=== PATIENT | female | born 1965 | race Caucasian/White ===

== ENCOUNTER 2021-08-27 15:59 | Outpatient (CLI) | payer OTHER, SELFPAY ==
--- NOTE | ~2021-08-27 | MM_ITS ---
EXAMINATION: MM screening cl BI w geoffrey HISTORY: Screening mammogram TECHNIQUE: Craniocaudal and mediolateral oblique 3-D tomosynthesis images were obtained and synthetic 2-D images were generated. CAD analysis was submitted and interpreted. COMPARISON: No prior mammogram is available for comparison at this institution. BREAST PARENCHYMAL COMPOSITION: There are scattered areas of fibroglandular density. FINDINGS: There is no evidence of suspicious mass, calcification, or architectural distortion to sugg est malignancy in either breast. There has been no suspicious interval change. IMPRESSION: 1. No mammographic evidence of malignancy. 2. Recommend routine screening mammography in one year. BI-RADS Category 1: Negative Reviewed, dictated and finalized at location A. MANAGEMENT TEACHER
== END 2021-08-27 16:00 | disposition home or self-care (01) ==
LOC: ANHIMG 16:01
PROVIDERS: Visit Provider Obstetrics & Gynecology
DX: Z12.31 Encounter for screening mammogram for malignant neoplasm of breast (principal)
CPT/HCPCS: 77063; 77067

== ENCOUNTER 2021-10-03 14:00 | Outpatient (CLI) | payer OTHER, SELFPAY ==
[2021-10-03 15:41] LABS: Thyroid Stimulating Hormone Reflex 0.527 uIU/mL (0.465-4.68)
== END 2021-10-03 14:01 | disposition home or self-care (01) ==
LOC: ANHLAB 14:01
PROVIDERS: Visit Provider Obstetrics & Gynecology
DX: R53.83 Other fatigue (principal)
CPT/HCPCS: 36415; 82306; 84443

== ENCOUNTER 2022-03-25 08:48 | Outpatient (CLI) | payer BC, SELFPAY ==
--- NOTE | ~2022-03-25 | US_ITS ---
US axilla RT 03/25/2022 09:14 Indication: Palpable abnormality of the right axilla Procedure: High-resolution ultrasound of the right axilla Comparison: No prior studies for comparison. Findings: Normal heterogeneous echotexture in the right axilla without discrete mass. Impression: 1: Normal ultrasound of the right axilla. No discrete mass. BI-RADS CATEGORY 1 - NEGATIVE Reviewed, dictated and finalized at location A. Impression: 1: Normal ultrasound of the right axilla. No discrete mass. BI-RADS CATEGORY 1 - NEGATIVE
== END 2022-03-25 08:49 | disposition home or self-care (01) ==
PROVIDERS: PCP Internal Medicine; Visit Provider Internal Medicine
DX: R22.31 Localized swelling, mass and lump, right upper limb (principal)
CPT/HCPCS: 76882

== ENCOUNTER 2023-04-23 12:54 | Outpatient (CLI) | payer OTHER, SELFPAY ==
--- NOTE | ~2023-04-23 | MR_ITS ---
MRI of the brain Clinical History: Right facial numbness Technique: Axial and sagittal T1-weighted images were acquired. These were followed by axial T2-weigh celestino, diffusion weighted, gradient, and FLAIR images. Following intravenous administration of 13 cc Mu ltiHance gadolinium, T1-weighted fat-sat imaging was performed in the axial and coronal planes. Findings: No abnormal signal seen in the brain parenchyma. No acute infarct, intracranial hemorrhage, or mass lesion. Ventricles and subarachnoid spaces are unremarkable. Orbits are unremarkable. Retention cyst or polyp present in the right maxillary sinus. Remaining paranasal sinuses and mastoid air cells are clear. M ajor intracranial flow voids are intact. Sagittal midline structures are intact. No abnormal postcontrast enhancement identified. IMPRESSION: Unremarkable exam. Reviewed, dictated and finalized at location M. IMPRESSION: Unremarkable exam.
== END 2023-04-23 12:55 ==
PROVIDERS: PCP Internal Medicine; Visit Provider Internal Medicine
DX: R20.0 Anesthesia of skin (principal); M62.40 Contracture of muscle, unspecified site
CPT/HCPCS: 70553; A9577

== ENCOUNTER 2023-06-25 14:59 | Outpatient (CLI) | payer OTHER, SELFPAY ==
--- NOTE | ~2023-06-25 | MM_ITS ---
EXAMINATION: MM screening cl BI w geoffrey HISTORY: Screening mammogram TECHNIQUE: Craniocaudal and mediolateral oblique 3-D tomosynthesis images were obtained and synthetic 2-D images were generated. CAD analysis was submitted and interpreted. COMPARISON: 08/27/2021 bilateral screening mammogram BREAST PARENCHYMAL COMPOSITION: There are scattered areas of fibroglandular density. FINDINGS: There is no evidence of suspicious mass, calcification, or architectural distortion to sugg est malignancy in either breast. There has been no suspicious interval change. IMPRESSION: 1. No mammographic evidence of malignancy. 2. Recommend routine screening mammography in one year. BI-RADS Category 1: Negative Reviewed, dictated and finalized at location A.
== END 2023-06-25 15:00 | disposition home or self-care (01) ==
LOC: ANHIMG 15:01
PROVIDERS: PCP Internal Medicine; Visit Provider Internal Medicine
DX: Z12.31 Encounter for screening mammogram for malignant neoplasm of breast (principal)
CPT/HCPCS: 77063; 77067

== ENCOUNTER 2023-07-30 01:50 | Day surgery (SDC) | payer OTHER, SELFPAY ==
[2023-07-17 13:02] VITALS: BMI 23.7
[2023-07-30 08:26] VITALS: BP 105/71; PULSE 70; RESP 14; TEMP 36.2; O2SAT 100
[2023-07-30] MEDS: LACTATED RINGERS 1,000 ML 150 ML IV CONT (08:38)
--- NOTE | 2023-07-30 09:39 | WPDANESEPPF ---
Anes - Initial Pre Proc Eval Procedure: Operation Date: 07/30/23 10:00 Proposed Procedures p Colonoscopy - Efraín Donaldson MD Date/Time: 07/30/23 09:39 Surgeon: Efraín Donaldson MD Pre Op Diagnosis: hx colon polyps Patient Data Age: 58 Gender: F Height: 1.7 m Weight: 68.4 kg Last Vital Signs Temp 97.2 F L 07/30/23 08:26 Pulse 70 07/30/23 08:26 Resp 14 07/30/23 08:26 BP 105/71 07/30/23 08:26 Pulse Ox 100 07/30/23 08:26 O2 Del Method Room Air 07/30/23 08:26 Allergies Allergy/AdvReac Type Severity Reaction Status Date / Time No Known Allergies Allergy Verified 07/30/23 08:25 Home Medications Medication Instructions Recorded Confirmed Type cetirizine 10 mg tablet (Aller-Marge) 10 mg PO DAILY PRN Allergy Symptoms 06/01/21 07/17/23 History multivitamin 1 tablet PO DAILY 06/01/21 07/17/23 History tumeric 100 mg-traci 150 mg-olive 1 cap PO DAILY 07/17/23 07/17/23 History 50 mg-oreg 150 mg-caprylate capsule vitamins A,C,F-eqpm-fvplbw 4,296 1 cap PO DAILY 07/17/23 07/17/23 History mcg-226 mg-90 mg capsule (PreserVision AREDS) Patient hx anesthesia problems: none Family hx anesthesia problems: none Results Review: All pre-operative results and documents have been reviewed as part of the pre-operative evaluation. [facility] Past Medical History Medical History Allergies Surgical History Surgical History H/O mastopexy Previous section x2 S/P cholecystectomy S/P dilation and curettage S/P hemorrhoidectomy [place] teeth removed Social History Social History Smoking status: Never smoker Alcohol intake: current Alcohol use details: 2 drinks monthly Substance use: never Substance use type: does not use Living arrangements: alone Spiritual care concerns: No Anes - Eval Final PreProcedure Day of Procedure 07/30/23 09:39 Patient weight: normal Heart: regular rate and rhythm Lungs: clear to auscultation Airway: Mallampati scale class II Neurological: alert and oriented Last oral intake: >/= 8 hours ASA classification: II Emergent: no Anesthetic plan: proceed Anesthesia type and monitoring: general GIVS and standard monitoring Results Review: All pre-operative results and documents have been reviewed as part of the pre-operative evaluation. Informed Consent: The patient's anesthetic plan and its attendant risks and benefits were discussed with the patient/family/POA. Questions were solicited and answers provided to the satisfaction of the patient/family/POA.
--- NOTE | 2023-07-30 09:47 | PM.HPGS ---
History of Present Illness History of Present Illness Consent: Risks, benefits, and alternatives have been discussed and questions answered. Patient agrees to proceed with procedure. Chief complaint: hx colon polyps Narrative: Chinyere Roberts is a 58 year old female who has been getting colonoscopies every 5 years because previous polyps, last one 5 years ago did not have polyp. Review of Systems Constitutional: Constitutional: Denies headache(s) and Denies weakness Eyes: Eyes: Denies blurry vision ENT: Reports Normal hearing present, Denies headache(s) and Denies neck pain Cardiovascular: Cardiovascular: Denies chest pain and Denies dyspnea Respiratory: Respiratory: Denies dyspnea Gastrointestinal: Gastrointestinal: Reports no additional gastrointestinal complaints Genitourinary: Genitourinary: Denies dysuria Musculoskeletal: Musculoskeletal: Denies neck pain Integumentary/Breasts: Skin/Breast: Denies dry skin Neurologic: Reports Normal hearing present, Denies headache(s) and Denies weakness Psychiatric: Psychiatric: Denies anxiety Endocrine: Endocrine: Denies change in body appearance Hematologic/Lymphatic: Hematologic/Lymphatic: Denies easy bleeding Allergic/Immunologic: Allergic/Immunologic: Denies urticaria PMFSH Past Medical History Medical History (Updated 07/30/23 @ 09:48 by Efraín Donaldson MD) Allergies Colon polyp Surgical History Surgical History H/O mastopexy Previous section x2 S/P cholecystectomy S/P dilation and curettage S/P hemorrhoidectomy [place] teeth removed Social History Social History Smoking status: Never smoker Alcohol intake: current Alcohol use details: 2 drinks monthly Substance use: never Substance use type: does not use Living arrangements: alone Spiritual care concerns: No Meds Home Medications and Allergies Home Medications Medication Instructions Recorded Confirmed Type cetirizine 10 mg tablet (Aller-Marge) 10 mg PO DAILY PRN Allergy Symptoms 06/01/21 07/17/23 History multivitamin 1 tablet PO DAILY 06/01/21 07/17/23 History tumeric 100 mg-traci 150 mg-olive 1 cap PO DAILY 07/17/23 07/17/23 History 50 mg-oreg 150 mg-caprylate capsule vitamins A,C,G-gldw-uopyur 4,296 1 cap PO DAILY 07/17/23 07/17/23 History mcg-226 mg-90 mg capsule (PreserVision AREDS) Allergies Allergy/AdvReac Type Severity Reaction Status Date / Time No Known Allergies Allergy Verified 07/30/23 08:25 Vital Signs Vital Signs - 24 hr 07/30/23 08:26 Temperature 97.2 F L Pulse Rate 70 Respiratory Rate 14 Blood Pressure 105/71 Pulse Oximetry 100 Oxygen Delivery Room Air Exam Const: General: comfortable and no acute distress HENMT: Face/Nose/Sinus: Normal nares present Eyes: General: appearance normal, both eyes and all related structures Neck: Neck: no JVD Resp: Auscultation: clear to auscultation bilaterally Cardio: Rate: regular rate Rhythm: regular rhythm GI: Inspection: non-distended GI Palp: Yes Soft to palpation Skin: General skin exam: normal color Neuro: General: gait normal Speech: normal speech Extrem: General: normal to inspection Psych: Mental Status: mental status grossly normal Assessment and Plan Assessment and plan (1) Colon polyp: Code(s): K63.5 - Polyp of colon Status: Acute Assessment and Plan: colonoscopy
--- NOTE | 2023-07-30 10:02 | SUR.OPER ---
PRACTICE SPECIALIST used oral suction for excess secretions during procedure.
[2023-07-30 10:11] VITALS: BP 95/57; PULSE 72; RESP 26; O2SAT 100
[2023-07-30 10:21] VITALS: BP 104/64; PULSE 57; RESP 18; O2SAT 100
[2023-07-30 10:31] VITALS: BP 104/66; PULSE 51; RESP 20; O2SAT 100
== END 2023-07-30 10:35 | disposition home or self-care (01) ==
PROVIDERS: PCP Internal Medicine; Visit Provider Internal Medicine Gastroenterology
PROC: 0DJD8ZZ Inspection of Lower Intestinal Tract, Via Natural or Artificial Opening Endoscopic (ICD-10-PCS; CPT 45378; principal; 2023-07-30 10:00)
DX: Z12.11 Encounter for screening for malignant neoplasm of colon (principal); K63.5 Polyp of colon; K64.8 Other hemorrhoids
CPT/HCPCS: 45385; 88305; J2001; J2704; J7120

== ENCOUNTER 2023-08-26 15:08 | Outpatient (CLI) | payer OTHER, SELFPAY ==
--- NOTE | ~2023-08-26 | XR_ITS ---
XR elbow RT min 3V DATE: 08/26/2023 15:33 INDICATION: Right lateral epicondylitis TECHNIQUE: 4 views COMPARISON: None FINDINGS: No fracture, dislocation, periosteal reaction or bone destruction, joint space narrowing or joint effusion. IMPRESSION: Negative Reviewed, dictated and finalized at location L. LOGY REP IMPRESSION: Negative
== END 2023-08-26 15:09 | disposition home or self-care (01) ==
PROVIDERS: PCP Internal Medicine; Visit Provider Internal Medicine
DX: M77.11 Lateral epicondylitis, right elbow (principal)
CPT/HCPCS: 73080